=== PATIENT | female | born 1980 | race Two or more races ===

== ENCOUNTER 2020-06-28 11:34 | Inpatient (IN) | payer MEDICAID, OTHER ==
[~2020-06-28] VITALS: Ht 154.9 cm; Wt 70.5 kg
[2020-06-28 12:14] LABS: Basophils # (auto) 0 10 ^3/uL (0-0.2); Basophils % (auto) 0.4 % (0.0-2.0); Eosinophils # (auto) 0 10 ^3/uL (0-0.8); Eosinophils % (auto) 0.4 % (0.0-7.0); Hematocrit 39.1 % (36.0-46.0); Hemoglobin 13.1 g/dL (12.2-16.2); Lymphocytes # (auto) 2.6 10 ^3/uL (0.4-5.4); Lymphocytes % (auto) 32.7 % (10.0-50.0); Mean Corpuscular Hemoglobin 30.2 pg (28.0-32.0); Mean Corpuscular Hgb Conc. 33.5 g/dL (32.0-36.0); Mean Corpuscular Volume 89.9 fL (80.0-100.0); Monocytes # (auto) 0.5 10 ^3/uL (0-1.3); Monocytes % (auto) 6.3 % (0.0-12.0); Neutrophils # (auto) 4.8 10 ^3/uL (1.6-8.6); Neutrophils % (auto) 60.2 % (37.0-80.0); Platelet Count (auto) 310 10^3/uL (140-450); Red Blood Cells 4.35 10^6/uL (4.0-5.20); Red Cell Distribution Width 13.9 % (11.8-14.3); White Blood Cell 7.9 10^3/uL (4.4-10.8)
[2020-06-28 12:34] LABS: Potassium 4.4 mmol/L (3.5-5.1)
[2020-06-28 12:41] LABS: Albumin 4.1 g/dL (3.4-5.0); BUN/Creatinine Ratio 21.3; Bilirubin, Total 0.4 mg/dL (0.2-1.0); Calcium 8.8 mg/dL (8.5-10.1); Total Protein 7.9 g/dL (6.4-8.2)
[2020-06-28] MEDS ORDERED: ASPirin 81 mg TAB ONE (14:28)
[2020-06-28] MEDS ORDERED: MORPHINE SULF INJ 2 MG/ML SYRINGE 1ML IV PRN ×2 (14:30→15:30)
[2020-06-28] MEDS ORDERED: ASPirin 81 mg TAB PO ONE (14:30)
[2020-06-28] MEDS ORDERED: NITROGLYCERIN 0.4 MG SL TAB SL PRN (14:30)
[2020-06-28 14:46] LABS: Urine Bacteria FEW /hpf (None Seen); Urine Blood Negative /uL (Negative); Urine Specific Gravity 1.008 (1.001-1.035); Urine WBC 2 /hpf (0 - 5)
[2020-06-28] MEDS ORDERED: PROMETHAZINE HCL 25 MG/ML 1ML IV PRN (15:30)
[2020-06-28] MEDS ORDERED: LACTULOSE 20Gm/30ML SOLN PO PRN (15:30)
[2020-06-28] MEDS ORDERED: LABETALOL HCL 5 MG/ML ML 20ML VIAL IV PRN (15:30)
[2020-06-28] MEDS ORDERED: ACETAMINOPHEN 500 MG TAB PO PRN (15:30)
[2020-06-28] MEDS ORDERED: TEMAZEPAM 15 MG CAP PO PRN (15:30)
[2020-06-28] MEDS: SODIUM CHLORIDE 0.9% 1,000 ML IV SCH (15:55)
--- NOTE | 2020-06-28 16:00 | NUR ---
received report from ED RN.
[2020-06-28 16:03] LABS: Alcohol, Urine < 3.0 mg/dL (0-10); Amphetamine Screen, Urine NEGATIVE (NEGATIVE); Barbiturate Scree,Urine NEGATIVE (NEGATIVE); Benzodiazephine Screen, Urine NEGATIVE (NEGATIVE); Cannabinoid Screen, Urine NEGATIVE (NEGATIVE); Cocaine Screen, Urine NEGATIVE (NEGATIVE); Opiate Scree,Urine NEGATIVE (NEGATIVE); Phencyclidine Screen, Urine NEGATIVE (NEGATIVE)
[2020-06-28 17:00] VITALS: BP 127/66
--- NOTE | 2020-06-28 17:28 | NUR ---
Telemetry admit from ER [facility]K admitted to Telemetry unit after SBAR received. Patient oriented to TAMIKA ramírez RN, unit, room, bed, and unit policies regarding patient care and visiting hours. Patient now on continuous telemetry monitoring, tele box # 49 and telemetry reading on arrival to unit is NSR. Patient weighed by bedscale and encouraged to call if tHey need something. All questions and concerns addressed, patient verbalized understanding.
[2020-06-28 18:10] VITALS: BP 127/66
[2020-06-28 21:00] VITALS: BP 109/65
[2020-06-28] MEDS: FAMOTIDINE 20 MG TAB PO SCH (21:47)
[2020-06-28] MEDS: ATORVASTATIN 20 MG TAB PO SCH (21:47)
[2020-06-29] MEDS: SODIUM CHLORIDE 0.9% 1,000 ML IV SCH ×2 (04:10→21:10)
[2020-06-29 05:00] VITALS: BP 112/63
--- NOTE | 2020-06-29 07:35 | NUR ---
opening note Assumed care of patient from NOC RN. Patient is AOx4 no s/s of distress noted. Bed is in lowest locked position, call light with in reach, and side rails up x2. Updated patient on plan of care and patient verbalized understanding. Will continue to monitor q1hr and PRN.
[2020-06-29 09:00] VITALS: BP 110/61
--- NOTE | 2020-06-29 09:01 | NUR ---
patient status patient stated "I cant go to the bathroom, I try to poop and cant, is there anything i can take?" Informed patient regarding PRN lactulose. Will administer PRN medication as prescribed.
[2020-06-29] MEDS: ENOXAPARIN SOD 40 MG/0.4 ML SYRINGE SC SCH (09:04)
[2020-06-29] MEDS: FAMOTIDINE 20 MG TAB PO SCH ×2 (09:05→22:03)
[2020-06-29] MEDS: ASPirin 81 mg TAB PO SCH (09:05)
[2020-06-29] MEDS: traMADol HCL 50 MG TAB PO PRN (09:06)
--- NOTE | 2020-06-29 10:20 | NUR ---
[facility] New orders received will follow through, will continue to monitor.
[2020-06-29 13:00] VITALS: BP 113/71
[2020-06-29] MEDS ORDERED: LORazepam 2MG/ML-1ML VIAL IV PRN (14:00)
[2020-06-29] MEDS ORDERED: MORPHINE SULF INJ 2 MG/ML SYRINGE 1ML IV PRN (14:00)
[2020-06-29 17:00] VITALS: BP 115/74
--- NOTE | 2020-06-29 18:36 | NUR ---
placed page call circuit worker hospitalist paged. Awaiting call back.
--- NOTE | 2020-06-29 18:38 | NUR ---
received call back Received call back from transfusion nurse. Updated MD regarding patient status. Patient stated "I feel so bloated, and i haven't pooped all day. I need to go but I cant." New orders received for lactulose q6 PRN and one time dose. Will follow through.
[2020-06-29] MEDS ORDERED: LACTULOSE 20Gm/30ML SOLN PO ONE (18:45)
--- NOTE | 2020-06-29 19:05 | NUR ---
end of shift note endorsed care to NOC RN. No s/s of distress noted.
--- NOTE | 2020-06-29 19:37 | NUR ---
Opening Shift Note Received report and assumed care of patient. Patient is awake and alert. No signs or symptoms of distress noted, patient currently denies pain. Instructed patient on plan of care and to call for assistance as needed. Will continue to monitor.
[2020-06-29 21:00] VITALS: BP 141/86
[2020-06-29] MEDS: ATORVASTATIN 20 MG TAB PO SCH (22:02)
[2020-06-30] MEDS ORDERED: LACTULOSE 20Gm/30ML SOLN PO PRN
[2020-06-30] MEDS: SODIUM CHLORIDE 0.9% 1,000 ML IV SCH ×3 (03:59→21:51)
[2020-06-30 05:00] VITALS: BP 91/53
[2020-06-30 07:07] LABS: Cholesterol 114 mg/dL (< 200); HDL Cholesterol 34 mg/dL (40-59); LDL Cholesterol 71 mg/dL (< 100); Triglycerides 106 mg/dL (< 150)
--- NOTE | 2020-06-30 07:45 | NUR ---
Opening Shift Note Assumed care of patient, awake, alert, and oriented. No S/S of distress/SOB or pain. Bed in lowest/locked position, bed rails up x2, call light within reach. Instructed on POC and to call for assist PRN. Will continue to monitor for changes Q1hr and PRN.
[2020-06-30] MEDS ORDERED: IOHEXOL 350 MG/ML 100ML IJ ONE (08:12)
[2020-06-30 09:00] VITALS: BP 109/66
[2020-06-30] MEDS: ENOXAPARIN SOD 40 MG/0.4 ML SYRINGE SC SCH (09:44)
[2020-06-30] MEDS: ASPirin 81 mg TAB PO SCH (09:44)
[2020-06-30] MEDS: FAMOTIDINE 20 MG TAB PO SCH ×2 (09:44→21:50)
[2020-06-30 13:00] VITALS: BP 113/69
[2020-06-30] MEDS: traMADol HCL 50 MG TAB PO PRN ×2 (13:41→21:57)
--- NOTE | 2020-06-30 15:38 | NUR ---
Nutrition Assessment Notes Please refer to link for full assessment notes. Est Energy needs: 3753-7933 kcals (17-20 kcal/kgBW) Est Protein needs: 56-71 gms/day (0.8-1.0 gm/kgBW) Will continue to monitor and reassess prn. Addendum: 06/30/20 at [address] Amended: Links added.
[2020-06-30 17:00] VITALS: BP 120/76
--- NOTE | 2020-06-30 19:32 | NUR ---
Opening Shift Note Received report and assumed care of patient. Patient is awake and alert. No signs or symptoms of distress noted. Instructed patient on plan of care and to call for assistance as needed. Will continue to monitor.
[2020-06-30] MEDS: ATORVASTATIN 20 MG TAB PO SCH (21:50)
[2020-06-30 21:53] VITALS: BP 111/72
--- NOTE | 2020-06-30 21:57 | NUR ---
Pain Medication Administration Patient complaining of headache pain level 5/10. Will administer pain medication per MD order. Will reassess pain level and will continue to monitor.
--- NOTE | 2020-06-30 22:57 | NUR ---
Pain Level Reassessment Patient asleep for pain level reassessment. Pain level reassessed to be 0/10 using Flacc pain scale. No signs or symptoms of distress noted. Will continue to monitor.
[2020-07-01] MEDS: SODIUM CHLORIDE 0.9% 1,000 ML IV SCH ×2 (04:00→12:00)
[2020-07-01 05:00] VITALS: BP 114/59
--- NOTE | 2020-07-01 07:40 | NUR ---
Opening Note Assumed pt care from NOC RN. Pt is a/ox4 with no s/s of distress or SOB. Pt is currently sitting upright in bed eating breakfast with no complaints at this time. No abnormalities noted, woods boss is strong bilaterally. Discussed POC with pt. Safety measures maintained with call light within reach, bed in lowest position and side rails up. Will continue to monitor for changes.
[2020-07-01 07:49] LABS: Basophils # (auto) 0 10 ^3/uL (0-0.2); Basophils % (auto) 0.3 % (0.0-2.0); Eosinophils # (auto) 0.1 10 ^3/uL (0-0.8); Hematocrit 39.2 % (36.0-46.0); Hemoglobin 13.3 g/dL (12.2-16.2); Lymphocytes # (auto) 2.4 10 ^3/uL (0.4-5.4); Lymphocytes % (auto) 26.9 % (10.0-50.0); Mean Corpuscular Hemoglobin 30.2 pg (28.0-32.0); Mean Corpuscular Hgb Conc. 34.1 g/dL (32.0-36.0); Mean Corpuscular Volume 88.8 fL (80.0-100.0); Monocytes # (auto) 0.5 10 ^3/uL (0-1.3); Monocytes % (auto) 5.6 % (0.0-12.0); Neutrophils # (auto) 5.9 10 ^3/uL (1.6-8.6); Neutrophils % (auto) 66.2 % (37.0-80.0); Platelet Count (auto) 292 10^3/uL (140-450); Red Blood Cells 4.41 10^6/uL (4.0-5.20); Red Cell Distribution Width 13.3 % (11.8-14.3); White Blood Cell 8.9 10^3/uL (4.4-10.8)
[2020-07-01 08:07] LABS: Calcium 8.7 mg/dL (8.5-10.1); Potassium 3.8 mmol/L (3.5-5.1)
[2020-07-01 08:10] LABS: BUN/Creatinine Ratio 16.7
[2020-07-01 09:00] VITALS: BP 104/67
[2020-07-01] MEDS: ASPirin 81 mg TAB PO SCH (09:05)
[2020-07-01] MEDS: FAMOTIDINE 20 MG TAB PO SCH ×2 (09:05→22:53)
[2020-07-01] MEDS: ENOXAPARIN SOD 40 MG/0.4 ML SYRINGE SC SCH (09:05)
[2020-07-01 12:54] VITALS: BP 111/66
--- NOTE | 2020-07-01 15:40 | NUR ---
Dr Chilel at Bedside MD to see pt. Discussed POC with pt, pending Neuro clearance. No new orders at this time. Will continue to monitor.
[2020-07-01 17:01] VITALS: BP 113/71
[2020-07-01] MEDS: traMADol HCL 50 MG TAB PO PRN (21:25)
--- NOTE | 2020-07-01 21:25 | NUR ---
Pain Medication Administration Patient complaining of headache pain level 8/10. Patient requesting tramadol to be administered. Will administer pain medication per MD order. Will reassess pain level and will continue to monitor.
[2020-07-01 21:29] VITALS: BP 111/71
--- NOTE | 2020-07-01 22:25 | NUR ---
Pain Level Reassessment Patient's pain level reassessed to be 0/10 after pain medication administration. No signs or symptoms of distress noted. Will continue to monitor.
[2020-07-01] MEDS: ATORVASTATIN 20 MG TAB PO SCH (22:53)
[2020-07-02 04:32] VITALS: BP 110/71
[2020-07-02 06:53] LABS: Basophils # (auto) 0 10 ^3/uL (0-0.2); Basophils % (auto) 0.5 % (0.0-2.0); Eosinophils # (auto) 0.1 10 ^3/uL (0-0.8); Eosinophils % (auto) 1.3 % (0.0-7.0); Hematocrit 38.2 % (36.0-46.0); Hemoglobin 13.2 g/dL (12.2-16.2); Lymphocytes # (auto) 2.7 10 ^3/uL (0.4-5.4); Lymphocytes % (auto) 29.8 % (10.0-50.0); Mean Corpuscular Hemoglobin 30.8 pg (28.0-32.0); Mean Corpuscular Hgb Conc. 34.5 g/dL (32.0-36.0); Mean Corpuscular Volume 89.3 fL (80.0-100.0); Monocytes # (auto) 0.6 10 ^3/uL (0-1.3); Monocytes % (auto) 6.8 % (0.0-12.0); Neutrophils # (auto) 5.7 10 ^3/uL (1.6-8.6); Neutrophils % (auto) 61.6 % (37.0-80.0); Platelet Count (auto) 275 10^3/uL (140-450); Red Blood Cells 4.27 10^6/uL (4.0-5.20); Red Cell Distribution Width 13.5 % (11.8-14.3); White Blood Cell 9.2 10^3/uL (4.4-10.8)
[2020-07-02 07:07] LABS: BUN/Creatinine Ratio 16.1; Calcium 8.9 mg/dL (8.5-10.1); Potassium 3.9 mmol/L (3.5-5.1)
--- NOTE | 2020-07-02 07:23 | NUR ---
Opening Note Assumed pt care from EFREN RN. Pt is a/ox4 with no s/s of distress or SOB. Pt is currently laying in bed with no complaints at this time. Discussed POC with pt. Safety measures maintained with call light within reach, bed in lowest position and side rails up. Will continue to monitor for changes.
[2020-07-02 08:31] VITALS: BP 95/54
[2020-07-02] MEDS: FAMOTIDINE 20 MG TAB PO SCH (08:42)
[2020-07-02] MEDS: ENOXAPARIN SOD 40 MG/0.4 ML SYRINGE SC SCH (08:42)
[2020-07-02] MEDS: ASPirin 81 mg TAB PO SCH (08:42)
--- NOTE | 2020-07-02 10:56 | NUR ---
Dr Menjivar at Bedside MD to see pt. Plans to d/c pt home today. Will implement and continue to monitor.
[2020-07-02 12:57] VITALS: BP 94/53
[2020-07-02 13:00] VITALS: BP 94/53
--- NOTE | 2020-07-02 14:47 | NUR ---
IV and Tele 49 D/C'ed IV to pt's L hand d/c'ed, catheter was removed fully intact. Site is asymptomatic. Pressure was applied to site with dressing. Tele 49 d/c'ed and sent back to ICU; staff made aware. Family aware of d/c.
--- NOTE | 2020-07-02 16:03 | NUR ---
Pt D/C'ed Off Unit Pt ambulated off unit. Pt is a/ox4 with no s/s of distress or SOB. Pt provided all education material, all questions were answered and pt was provided with information regarding follow up appointments. Pt took all belongings.
[2020-07-02 16:14] VITALS: BP 111/74
== END 2020-07-02 16:02 | disposition home or self-care (01) | DRG 47 ==
LOC: ER 11:34 → TELE 11:35 → TELE-WESTW 16:49
PROVIDERS: ADMIT Internal Medicine; ATTEND Internal Medicine
DX: G45.9 Transient cerebral ischemic attack, unspecified (principal); G81.91 Hemiplegia, unspecified affecting right dominant side; E66.9 Obesity, unspecified; Z68.29 Body mass index [BMI] 29.0-29.9, adult; F17.200 Nicotine dependence, unspecified, uncomplicated; R29.810 Facial weakness
CPT/HCPCS: 36415; 70450; 70496; 70498; 70551; 71045; 80048; 80053; 80061; 80307; 81001; 82550; 84443; 84702; 85025; 85652; 93306; 93886; 96361; 96374; G0378